=== PATIENT | female | born 2005 | race Caucasian/White ===

== ENCOUNTER → 2025-02-09 | Outpatient (CLI) | payer OTHER ==
[2025-02-09 14:10] LABS: BASOPHILS ABSOLUTE AUTO 0.04 K/mm3 (0.00-0.23); BASOPHILS PERCENT AUTO 1 % (0-2); EOSINOPHILS ABSOLUTE AUTO 0.16 K/mm3 (0.00-0.68); EOSINOPHILS PERCENT AUTO 3 % (0-6); Hematocrit 38.7 % (33.0-51.0); Hemoglobin 12.9 g/dL (11.5-16.0); IMMATURE GRAN ABSOLUTE AUTO 0.01 K/mm3 (0.00-0.10); IMMATURE GRAN PERCENT AUTO 0 % (0-1); LYMPHOCYTES ABSOLUTE AUTO 1.53 K/mm3 (0.84-5.20); LYMPHOCYTES PERCENT AUTO 31 % (21-46); MONOCYTES ABSOLUTE AUTO 0.48 K/mm3 (0.16-1.47); MONOCYTES PERCENT AUTO 10 % (4-13); Mean Corpuscular HGB Conc 33.3 g/dL (31.5-36.5); Mean Corpuscular Volume 93 fL (80-100); NEUTROPHILS ABSOLUTE AUTO 2.80 K/mm3 (1.96-9.15); NEUTROPHILS PERCENT AUTO 56 % (41-73); NRBC ABSOLUTE 0.00 K/mm3 (0.00-0.02); NRBC Auto 0.0 /100 WBC (0.0-0.2); Platelet Count 250 K/mm3 (150-400); RDW Coefficient Variation 12.3 % (11.7-14.2); RDW Standard Deviation 42.5 fL (35.1-46.3)
[2025-02-09 17:39] LABS: Alanine Aminotransfer (ALT/SGP 29.0 U/L (12-78); Albumin, Blood 3.9 g/dL (3.4-5.0); Albumin/Globulin Ratio 1.3 (0.8-1.8); Anion Gap 8.0 mmol/L (3-11); Aspartate Aminotrans (AST/SGOT 15.0 U/L (12-37); Bilirubin, Total 0.4 mg/dL (0.1-1.0); Blood Urea Nitrogen 13.0 mg/dL (8-24); CO2, Blood 26.0 mmol/L (21-32); Calcium, Blood 8.6 mg/dL (8.5-10.1); Chloride, Blood 106.0 mmol/L (98-108); Creatinine, Blood 0.73 mg/dL (0.40-1.00); Follicle Stimulating Hormone 3.8 mIU/ml; Globulin, Blood 3.0 g/dL (2.2-4.0); Glucose, Blood 79.0 mg/dL (70-99); Potassium, Blood 3.5 mmol/L (3.5-5.5); Sodium, Blood 136.0 mmol/L (136-145); Thyroid Stimulating Hormone 2.64 uIU/mL (0.360-4.800); Total Protein, Blood 6.9 g/dL (6.4-8.2)
[2025-02-10 15:51] LABS: ESTRADIOL BY IMMUNOASSAY 185.8 pg/mL
[2025-02-11 17:51] LABS: QUANTIFERON MITOGEN MINUS NIL 9.96 IU/mL; QUANTIFERON NIL 0.04 IU/mL; QUANTIFERON PLUS TB1 MINUS NIL 0.00 IU/mL (<=0.34); QUANTIFERON PLUS TB2 MINUS NIL 0.00 IU/mL (<=0.34)
== END | disposition home or self-care (01) ==
LOC: LAB 08:30 → LAB SHORT 08:30
PROVIDERS: Student in an Organized Health Care Education/Training Program
DX: Z11.1 Encounter for screening for respiratory tuberculosis (principal); Z12.4 Encounter for screening for malignant neoplasm of cervix; N91.4 Secondary oligomenorrhea
CPT/HCPCS: 80053; 82670; 83001; 84146; 84443; 85025; 86480; G0145